=== PATIENT | male | born 1930 | race Caucasian/White ===

== ENCOUNTER 2019-07-22 15:59 | Inpatient (IN) ==
--- NOTE | 2019-07-22 16:32 | ERNOTE ---
Dyspnea - Date Date of Service: 07/22/19 - General Presenting Symptoms: shortness of breath, difficulty of breathing, wheezing Time Seen by Provider: 07/22/19 16:05 Source: patient, family, EMS Exam Limitations: no limitations - Immun/Allergies/Home Medications Allergies/Adverse Reactions: Allergies rosiglitazone [From Avandia] Allergy (Verified 07/22/19 16:39) Home Medications: HOME MEDICATIONS Arginine/Ascorbate Sod/Marielena AC [Arginaid Powder] 1 ea PO DAILY 07/22/19 [Last Taken Unknown] Atorvastatin Calcium 40 mg PO DAILY 07/22/19 [Last Taken Unknown] Cilostazol [Pletal] 100 mg PO DAILY 07/22/19 [Last Taken Unknown] Enalapril Maleate [Vasotec] 20 mg PO BID 07/22/19 [Last Taken Unknown] Ferrous Sulfate [Iron] 325 mg PO DAILY 07/22/19 [Last Taken Unknown] Gabapentin [Neurontin] 600 mg PO TID 07/22/19 [Last Taken Unknown] Multivit-Min/FA/Lycopen/Lutein [[facility] Multivitamin Tab] 1 ea PO DAILY 07/22/19 [Last Taken Unknown] Nut.tx.gluc Intol,Lf,Soy/Fiber [Glucerna] 240 ml PO BID 07/22/19 [Last Taken Unknown] [place]-3/Dha/Epa/Fish Oil [Fish Oil 1,000 mg Softgel] 1 ea PO DAILY 07/22/19 [Last Taken Unknown] Propylene Glycol/Peg 400/Pf [Systane 0.3-0.4% Eye Drops] 1 ea OPHTHALMIC (EYE) QID 07/22/19 [Last Taken Unknown] Psyllium Husk (with Sugar) [Metamucil] 1 ea PO DAILY 07/22/19 [Last Taken Unknown] Ranitidine HCl [Zantac] 150 mg PO BID 07/22/19 [Last Taken Unknown] Vitamin A 400 unit PO DAILY 07/22/19 [Last Taken Unknown] amLODIPine BESYLATE [Norvasc] 10 mg PO DAILY 07/22/19 [Last Taken Unknown] glipiZIDE [Glipizide] 10 mg PO BID 07/22/19 [Last Taken Unknown] - History of Present Illness Narrative: patient noted at [facility] to have low sats and sob Severity: moderate 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, 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 Initiating event: Reports: upper resp illness Frequency of episodes: Reports: occassional episodes Modifying Factors - (Improves): Reports: oxygen Modifying Factors (Worsens): Reports: activity Associated Symptoms-Dyspnea: Reports: fever/chills, cough, wheezing Review of Systems - Review of Systems Constitutional: Present: See HPI, weakness, fatigue, malaise EYE: Present: no symptoms reported ENT: Present: no symptoms reported Respiratory: Present: See HPI, cough, orthopnea, wheezing Cardiology: Present: no symptoms reported Gastrointestinal/Abdominal: Present: no symptoms reported Genitourinary: Present: no symptoms reported Musculoskeletal: Present: no symptoms reported Skin: Present: no symptoms reported Neurological: Present: no symptoms reported Endocrine: Present: no symptoms reported Hematologic/Lymphatic: Present: no symptoms reported Psych: Present: no symptoms reported Medical History (Updated 07/22/19 @ 16:36 by Kina Magallon RN) Chronic kidney disease, stage 3 (moderate) Hepatitis A Iron deficiency anemia Macular degeneration Mononeuropathy of both lower extremities Sick sinus syndrome Type 2 diabetes mellitus Vitamin D deficiency, unspecified Social History: (Last Updated 07/22/19 @ 16:37 by Kina Magallon RN) Social History: Marital status: / Tobacco: Smoking Status: Former smoker Alcohol: alcohol intake: never Substance Use: substance use type: does not use Physical Exam - Physical Exam General Appearance: Present: mild distress, anxious Head Exam: Present: normal inspection, no evidence of injury Eye Exam: Normal inspection: bilateral, PERRL: bilateral, EOMI: bilateral Ears, Nose, Throat: Present: normal ENT inspection, normal pharynx Neck: Present: normal inspection, nontender Respiratory: Present: no accessory muscle use, rales, rhonchi, wheezing Cardiovascular/Chest: Present: regular rate, rhythm, no murmur, normal peripheral pulses Peripheral Pulses: N=norm/S=strong/W=weak/B=bound/A=absent: Carotid (R): Normal, Carotid (L): Normal, Radial (R): Normal, Radial (L): Normal, Femoral (R): Normal, Femoral (L): Normal, Dorsalis-pedis (R): Normal, Dorsalis-pedis (L): Normal Gastrointestinal/Abdominal: Present: normal bowel sounds, nontender, nondistended, soft, no organomegaly Back Exam: Present: normal inspection, normal range of motion, no CVA tenderness, no vertebral tenderness Extremity Exam: Present: normal inspection Neurological Exam: Present: alert, oriented, normal mood/affect, no motor/sensory deficits Skin Exam: Present: normal color, warm/dry Lymphatic Exam: Present: no adenopathy Progress - Date and Time Seen: Date and Time: 07/22/19 17:42 condition unchanged, labs and x-rays reviewed with family and patient, they request palliative therapy and patient remains dnr, case discussed withdr gomez who accepts patient for admission - Results and Orders Patient's Lab Results:: I have reviewed the patient's lab results. - Vital Signs Patient's Vital Signs:: I have reviewed the patient's vital signs. Vital Signs: Vital Signs 07/22/19 16:00 Temperature 36.8 C Pulse Rate 77 Respiratory Rate 21 H Blood Pressure 123/40 O2 Sat by Pulse Oximetry 98 - EKG EKG #1 EKG: atrial fibrillation - X-Ray X-Ray #1 X-Ray: chest - chf, left pleural effussion Interpretation: Interp. by me - Progress/Reassessment Chief Complaint: Dyspnea Progress:: Unchanged Plan - Plan Plan: to admit to [facility] Clinical Impression: CHF (congestive heart failure) - Departure Disposition: Still a patient Condition: Serious Instructions: Heart Failure, [id number] Referrals: Crystal Rosario APRN [Primary Care Provider] -
[2019-07-22 16:37] LABS: Mean Cell Volume 93.1 fl (78-100); Mean Corpuscular Hgb Conc 31.1 g/dl (32-36); Mean Platelet Volume 10.3 fl (8-11.3); Platelet Count 228 K/mm3 (150-450); Red Blood Count 2.45 M/mm3 (4.7-6.0); Red Cell Distribution Width 15.6 % (11.5-14.0); White Blood Count 10.8 K/mm3 (4.0-10.5)
[2019-07-22 16:47] LABS: Hemoglobin 7.1 gm/dL (13.5-18.0)
[2019-07-22 16:48] LABS: Hematocrit 22.8 % (42.0-52.0)
[2019-07-22 16:49] LABS: Total Cells Counted 100
[2019-07-22 16:59] LABS: Albumin * 2.6 gm/dl (3.4-5.0); Anion Gap 12.9 mmol/L (6.8-13.8); Bilirubin, Total 0.4 mg/dL (0.0-1.1); CRP 7.5 mg/dL (0.0-0.9); Ca. Corrected For Albumin 8.6 mg/dL (8.4-10.2); Calcium * 7.8 mg/dL (7.9-10.9); Carbon Dioxide 25.5 mmol/L (24-32.6); Potassium 4.4 mmol/L (3.4-4.6); Total Protein 6.2 gm/dL (6.2-8.2)
[2019-07-22 17:00] LABS: Troponin I 0.122 ng/mL (0.00-0.10)
[2019-07-22 17:06] LABS: Lymphocyte 9 % (20-51); Monocyte 11 % (0-9); Neutrophil 80 % (42-75); Neutrophil # 8.6 K/mm3 (1.3-6.0); Platelet Estimate Normal (NORMAL); RBC Morphology Normal (NORMAL)
[2019-07-22] MEDS ORDERED: FUROSEMIDE 10 MG/ML VIAL IV ONE ×2 (17:14→18:49)
[2019-07-22] MEDS ORDERED: NORMAL SALINE 1,000 ML IV PRN (17:46)
--- NOTE | 2019-07-22 18:45 | HP ---
Chief Complaint - Chief Complaint Date of Service: 07/22/19 Time of Service: 18:52 Chief Complaint: Nonproductive cough x1 week, weakness and shortness of breath History of Present Illness: 88-year-old male who past medical history of CKD stage III, AFib, iron deficiency anemia, type 2 diabetes, sick sinus syndrome, macular degeneration, mononeuropathy of both lower extremities presents with complaints of a nonproductive cough for the past 1 week. Associated with burning abdominal pain. He states his abdominal pain that radiated into his chest but was relieved with Zantac at the custodial. Today he also reports shortness of breath. Denies fevers or chills. He is currently living at [facility] and has been there for the past 1 month for rehab. Prior to that he was living at home with his daughter. Stool or blood in stool he denies any black. Denies coughing up blood. Daughter states his last hemoglobin was 8.2 about 2 months ago at [place]. 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 He has a smoking history. He had been diagnosed with atrial fibrillation but declined any anticoagulation. He is not on diuretics at home. I discussed with the patient regarding CODE STATUS and he wants to be DNR/DNI. In the emergency department he is found to be anemic with a hemoglobin of 7.1, hematocrit 22.8. His renal function appears to be stable. The chest x- ray shows large left pleural effusion and pulmonary vascular congestion. Daughter states baseline creatinine is 3. Creatinine today is 2.1 with GFR of 32, elevated troponin of 0.12. I will admit him for fluid overload and anemia. He will is agreeable to this is receiving 1 unit of blood and IV diuresis. Medical History (Updated 07/22/19 @ 18:45 by Rosalinda Mills MD) Chronic kidney disease, stage 3 (moderate) Hepatitis A Iron deficiency anemia Macular degeneration Mononeuropathy of both lower extremities Sick sinus syndrome Type 2 diabetes mellitus Vitamin D deficiency, unspecified Social History: (Last Updated 07/22/19 @ 16:37 by Kina Magallon RN) Social History: Marital status: / Tobacco: Smoking Status: Former smoker Alcohol: alcohol intake: never Substance Use: substance use type: does not use Review Of Systems (GEN) - Review of Systems Generalized/Overall Review: Present: Weakness. Absent: Fever Respiratory: Present: Cough, Shortness of Breath Cardiac: Absent: Chest Pain Abdominal: Present: Abdominal Pain. Absent: Nausea, Vomiting, Melena, Bright blood from rectum Misc: All systems neg except as marked Allergies/Adverse Reactions: Allergies Allergy/AdvReac Type Severity Reaction Status Date / Time rosiglitazone [From Avandia] Allergy Verified 07/22/19 16:39 Home Medications: HOME MEDICATIONS Acetaminophen [Tylenol] 650 mg PO Q6H PRN 07/22/19 [Last Taken Unknown] Albuterol Sulfate/Ipratropium [Duoneb 2.5-0.5MG/3ML Soln] 3 ml INHALATION .Q4HR PRN 07/22/19 [Last Taken Unknown] Arginine/Ascorbate Sod/Marielena AC [Arginaid Powder] 1 ea PO DAILY 07/22/19 [Last Taken Unknown] Atorvastatin Calcium 40 mg PO DAILY 07/22/19 [Last Taken Unknown] Cilostazol [Pletal] 100 mg PO DAILY 07/22/19 [Last Taken Unknown] Enalapril Maleate [Vasotec] 20 mg PO BID 07/22/19 [Last Taken Unknown] Ferrous Sulfate [Iron] 325 mg PO DAILY 07/22/19 [Last Taken Unknown] Gabapentin [Neurontin] 600 mg PO TID 07/22/19 [Last Taken Unknown] Loratadine 10 mg PO PRN PRN 07/22/19 [Last Taken Unknown] Multivit-Min/FA/Lycopen/Lutein [[facility] Multivitamin Tab] 1 ea PO DAILY 07/22/19 [Last Taken Unknown] Nut.tx.gluc Intol,Lf,Soy/Fiber [Glucerna] 240 ml PO BID 07/22/19 [Last Taken Unknown] [place]-3/Dha/Epa/Fish Oil [Fish Oil 1,000 mg Softgel] 1 ea PO DAILY 07/22/19 [Last Taken Unknown] Propylene Glycol/Peg 400/Pf [Systane 0.3-0.4% Eye Drops] 1 ea OPHTHALMIC (EYE) QID 07/22/19 [Last Taken Unknown] Pseudoephedrine HCl [Sudogest] 30 mg PO .Q4HR PRN 07/22/19 [Last Taken Unknown] Psyllium Husk (with Sugar) [Metamucil] 1 ea PO DAILY 07/22/19 [Last Taken Unknown] Ranitidine HCl [Zantac] 150 mg PO BID 07/22/19 [Last Taken Unknown] Vitamin A 400 unit PO DAILY 07/22/19 [Last Taken Unknown] amLODIPine BESYLATE [Norvasc] 10 mg PO DAILY 07/22/19 [Last Taken Unknown] glipiZIDE [Glipizide] 10 mg PO BID 07/22/19 [Last Taken Unknown] guaiFENesin [Mucinex] 600 mg PO .Q12HR PRN 07/22/19 [Last Taken Unknown] guaiFENesin/DEXTROMETHORPHAN [Tussin Dm Syrup] 10 ml PO .Q4HR PRN 07/22/19 [Last Taken Unknown] Exam - Exam Vital Signs: Vital Signs - Last Taken Temp 36.8 C 07/22/19 16:00 Pulse 58 L 07/22/19 17:47 Resp 22 H 07/22/19 17:47 BP 114/42 07/22/19 17:47 Pulse Ox 91 L 07/22/19 17:47 Constitutional: Present: Alert, Cooperative, Well developed, Well nourished, Elderly ENT Exam: Present: hearing grossly normal, moist mucous membranes Eye Exam: bilateral eye: normal inspection, PERRL, EOMI Neck: Present: non-tender, supple. Absent: lymphadenopathy (R), lymphadenopathy (L) Back Exam: Present: normal inspection, no CVA tenderness, no vertebral tenderness. Absent: CVA tenderness (R), CVA tenderness (L) Respiratory: Present: no respiratory distress, no accessory muscle use, decreased breath sounds - Coarse breath sounds noted throughout all lung jaramillo Cardiovascular/Chest: Present: normal peripheral pulses, regular rate, rhythm, no edema, no murmur Peripheral Pulses: dorsalis-pedis (R): 1+, dorsalis-pedis (L): 1+ Abdomen: Present: Normal bowel sounds, soft, nontender Extremity: Present: no pedal edema Skin Exam: Present: normal color, warm/dry Neurologic: Present: alert, normal mood/affect Appearance: Present: appropriate appearance, appropriate insight Eye contact: Present: cooperative, good eye contact Thoughts: Present: normal thought pattern, normal mood /affect Diagnostic Studies: Abnormal Lab Results 07/22/19 07/22/19 07/22/19 Range/Units 16:18 16:34 16:34 WBC 10.8 H (4.0-10.5) K/mm3 RBC 2.45 L (4.7-6.0) M/mm3 Hgb 7.1 L* (13.5-18.0) gm/dL Hct 22.8 L* (42.0-52.0) % MCHC 31.1 L (32-36) g/dl RDW 15.6 H (11.5-14.0) % Neutrophils % (Manual) 80 H (42-75) % Lymphocytes % (Manual) 9 L (20-51) % Monocytes % (Manual) 11 H (0-9) % Neutrophils # (Manual) 8.6 H (1.3-6.0) K/mm3 Lymphocytes # (Manual) 1.0 L (1.5-3.5) k/mm3 Monocytes # (Manual) 1.2 H (0.0-1.0) k/mm3 D-Dimer (0.19-0.49) ug/mL pCO2 (35.0-48.0) mmHg pO2 (83.0-108.0) mmHg HCO3 (21.0-28.0) mmol/L Base Excess (-2.0-3.0) mmol/L ABG O2 Sat (Measured) (94.0-98.0) % Plasma Sodium 143 H (130-142) mmol/L Chloride 107 H (97-106) mmol/L BUN 42 H (6-23) mg/dL Creatinine 2.10 H (0.4-1.4) mg/dL Est GFR (Non-Af Amer) 32 L (60-130) mL/min Random Glucose 255 H (70-110) mg/dL Lactic Acid, Venous 2.1 H (0.4-2.0) mmol/L Calcium 7.8 L (7.9-10.9) mg/dL ALT 12 L (19-67) U/L Troponin I 0.122 H* (0.00-0.10) ng/mL C-Reactive Prot, Quant 7.5 H (0.0-0.9) mg/dL B-Natriuretic Peptide 4331 H (5-650) pg/mL Albumin 2.6 L (3.4-5.0) gm/dl 07/22/19 07/22/19 Range/Units 16:34 17:18 WBC (4.0-10.5) K/mm3 RBC (4.7-6.0) M/mm3 Hgb (13.5-18.0) gm/dL Hct (42.0-52.0) % MCHC (32-36) g/dl RDW (11.5-14.0) % Neutrophils % (Manual) (42-75) % Lymphocytes % (Manual) (20-51) % Monocytes % (Manual) (0-9) % Neutrophils # (Manual) (1.3-6.0) K/mm3 Lymphocytes # (Manual) (1.5-3.5) k/mm3 Monocytes # (Manual) (0.0-1.0) k/mm3 D-Dimer 2.32 H (0.19-0.49) ug/mL pCO2 33.8 L (35.0-48.0) mmHg pO2 38.2 L* (83.0-108.0) mmHg HCO3 20.2 L (21.0-28.0) mmol/L Base Excess -4.2 L (-2.0-3.0) mmol/L ABG O2 Sat (Measured) 72.8 L (94.0-98.0) % Plasma Sodium (130-142) mmol/L Chloride (97-106) mmol/L BUN (6-23) mg/dL Creatinine (0.4-1.4) mg/dL Est GFR (Non-Af Amer) (60-130) mL/min Random Glucose (70-110) mg/dL Lactic Acid, Venous (0.4-2.0) mmol/L Calcium (7.9-10.9) mg/dL ALT (19-67) U/L Troponin I (0.00-0.10) ng/mL C-Reactive Prot, Quant (0.0-0.9) mg/dL B-Natriuretic Peptide (5-650) pg/mL Albumin (3.4-5.0) gm/dl Laboratory Results WBC 10.8 K/mm3 (4.0-10.5) H 07/22/19 16:34 RBC 2.45 M/mm3 (4.7-6.0) L 07/22/19 16:34 Hgb 7.1 gm/dL (13.5-18.0) L* 07/22/19 16:34 Hct 22.8 % (42.0-52.0) L* 07/22/19 16:34 MCV 93.1 fl (78-100) 07/22/19 16:34 MCH 29.0 pg (27-31) 07/22/19 16:34 MCHC 31.1 g/dl (32-36) L 07/22/19 16:34 RDW 15.6 % (11.5-14.0) H 07/22/19 16:34 Plt Count 228 K/mm3 (150-450) 07/22/19 16:34 MPV 10.3 fl (8-11.3) 07/22/19 16:34 80 % (42-75) H 07/22/19 16:34 9 % (20-51) L 07/22/19 16:34 11 % (0-9) H 07/22/19 16:34 8.6 K/mm3 (1.3-6.0) H 07/22/19 16:34 1.0 k/mm3 (1.5-3.5) L 07/22/19 16:34 1.2 k/mm3 (0.0-1.0) H 07/22/19 16:34 Normal (NORMAL) 07/22/19 16:34 RBC Morphology Normal (NORMAL) 07/22/19 16:34 2.32 ug/mL (0.19-0.49) H 07/22/19 16:34 pCO2 33.8 mmHg (35.0-48.0) L 07/22/19 17:18 pO2 38.2 mmHg (83.0-108.0) L* 07/22/19 17:18 HCO3 20.2 mmol/L (21.0-28.0) L 07/22/19 17:18 Total CO2 21.2 mmol/L (19.0-24.0) 07/22/19 17:18 Base Excess -4.2 mmol/L (-2.0-3.0) L 07/22/19 17:18 ABG pH 7.39 (7.35-7.45) 07/22/19 17:18 ABG O2 Sat (Measured) 72.8 % (94.0-98.0) L 07/22/19 17:18 Sodium 141 mmol/L (132-142) 07/22/19 16:34 143 mmol/L (130-142) H 07/22/19 16:34 Potassium 4.4 mmol/L (3.4-4.6) 07/22/19 16:34 Chloride 107 mmol/L (97-106) H 07/22/19 16:34 Carbon Dioxide 25.5 mmol/L (24-32.6) 07/22/19 16:34 12.9 mmol/L (6.8-13.8) 07/22/19 16:34 BUN 42 mg/dL (6-23) H 07/22/19 16:34 2.10 mg/dL (0.4-1.4) H 07/22/19 16:34 Est GFR (Non-Af Amer) 32 mL/min (60-130) L 07/22/19 16:34 20.0 (9.0-21.6) 07/22/19 16:34 255 mg/dL (70-110) H 07/22/19 16:34 2.1 mmol/L (0.4-2.0) H 07/22/19 16:18 Calcium 7.8 mg/dL (7.9-10.9) L 07/22/19 16:34 Calcium Adj for Albumin 8.6 mg/dL (8.4-10.2) 07/22/19 16:34 0.4 mg/dL (0.0-1.1) 07/22/19 16:34 AST 16 U/L (0-48) 07/22/19 16:34 ALT 12 U/L (19-67) L 07/22/19 16:34 112 U/L (50-170) 07/22/19 16:34 0.122 ng/mL (0.00-0.10) H* 07/22/19 16:34 C-Reactive Prot, Quant 7.5 mg/dL (0.0-0.9) H 07/22/19 16:34 B-Natriuretic Peptide 4331 pg/mL (5-650) H 07/22/19 16:34 6.2 gm/dL (6.2-8.2) 07/22/19 16:34 2.6 gm/dl (3.4-5.0) L 07/22/19 16:34 Assessment/Plan - Narrative Narrative: 88-year-old male who past medical history of CKD stage III, iron deficiency anemia, Afib, type 2 diabetes, sick sinus syndrome, macular degeneration, mononeuropathy of both lower extremities presents with complaints of a nonproductive cough for the past 1 week. I discussed with the patient regarding CODE STATUS and he wants to be DNR/DNI. In the emergency department he is found to be anemic with a hemoglobin of 7.1, hematocrit 22.8. His renal function appears to be stable. The chest x-ray shows large left pleural effusion and pulmonary vascular congestion. Daughter states baseline creatinine is 3. Creatinine today is 2.1 with GFR of 32, elevated troponin of 0.12. I will admit him for fluid overload and anemia. He will is agreeable to this is receiving 1 unit of blood and IV diuresis. Family states they don't want any aggressive management such as a thoracentesis. They want to transition him to palliative care and their goal is to keep him comfortable. Plan #1 start Lasix 40 mg twice a day. Strict I's and O's. #2 type and screen, give 1 unit of blood with 1 dose of Lasix 40 mg after transfusion. 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
[2019-07-22] MEDS ORDERED: ACETAMINOPHEN 325 MG TABLET PO PRN (18:46)
[2019-07-22] MEDS: BENZONATATE 100 MG CAPSULE PO PRN (20:57)
[2019-07-22] MEDS: FAMOTIDINE 20 MG TABLET PO SCH (20:58)
[2019-07-22] MEDS: ENALAPRIL MALEATE 20 MG TABLET PO SCH (20:58)
[2019-07-22] MEDS: glipiZIDE 10 MG TABLET PO SCH (20:58)
[2019-07-22] MEDS: FUROSEMIDE 10 MG/ML VIAL IV SCH (23:41)
[2019-07-23] MEDS: BENZONATATE 100 MG CAPSULE PO PRN ×3 (05:34→21:24)
[2019-07-23 05:40] LABS: Hemoglobin 9.3 gm/dL (13.5-18.0)
[2019-07-23 05:57] LABS: Hematocrit 28.9 % (42.0-52.0); Mean Cell Volume 90.6 fl (78-100); Mean Corpuscular Hemoglobin 29.2 pg (27-31); Mean Corpuscular Hgb Conc 32.2 g/dl (32-36); Mean Platelet Volume 10.6 fl (8-11.3); Neutrophil # 7.8 K/mm3 (1.3-6.0); Neutrophil % 68.6 % (42-75.0); Platelet Count 248 K/mm3 (150-450); Red Blood Count 3.19 M/mm3 (4.7-6.0); Red Cell Distribution Width 15.4 % (11.5-14.0); White Blood Count 11.4 K/mm3 (4.0-10.5)
[2019-07-23 06:04] LABS: Albumin * 2.7 gm/dl (3.4-5.0); Anion Gap 13.7 mmol/L (6.8-13.8); BUN/Creatinine Ratio 21.6 (9.0-21.6); Bilirubin, Total 0.6 mg/dL (0.0-1.1); Calcium * 8.3 mg/dL (7.9-10.9); Potassium 3.7 mmol/L (3.4-4.6); Total Protein 6.6 gm/dL (6.2-8.2)
[2019-07-23] MEDS: PSYLLIUM SEED 1 PACKET PACKET PO SCH (08:17)
[2019-07-23] MEDS: glipiZIDE 10 MG TABLET PO SCH ×2 (08:17→16:45)
[2019-07-23] MEDS: FUROSEMIDE 10 MG/ML VIAL IV SCH (08:17)
[2019-07-23] MEDS: FERROUS SULFATE 325 MG TABLET PO SCH (08:17)
[2019-07-23] MEDS: FAMOTIDINE 20 MG TABLET PO SCH ×2 (08:18→21:24)
[2019-07-23] MEDS: amLODIPine BESYLATE 10 MG TABLET PO SCH (08:18)
[2019-07-23] MEDS: CILOSTAZOL 100 MG TABLET PO SCH (08:18)
[2019-07-23] MEDS: GABAPENTIN 600 MG TABLET PO SCH ×3 (08:18→16:45)
[2019-07-23] MEDS: ENALAPRIL MALEATE 20 MG TABLET PO SCH ×2 (08:18→21:24)
[2019-07-23] MEDS ORDERED: ROSUVASTATIN CALCIUM 20 MG TABLET PO SCH (09:00)
[2019-07-23] MEDS ORDERED: POTASSIUM BICARBONATE/CIT AC 25 MEQ TABLET.EFF PO ONE (10:16)
--- NOTE | 2019-07-23 10:16 | PN ---
Subjective - Date and Time Seen Date: 07/23/19 Time: 08:50 Subjective Narrative: He states he feels better today, decreased shortness of breath and decreased cough. Objective - Review of Systems Generalized/Overall Review: Reports: Weakness. Denies: Chills, Fever Respiratory: Reports: Shortness of Breath Cardiac: Denies: Chest Pain Abdominal: Denies: Abdominal Pain Misc: All systems neg except as marked - Vitals Vitals: Last Vital Signs Temp 36.7 C 07/23/19 07:07 Pulse 79 07/23/19 08:18 Resp 16 07/23/19 07:07 BP 134/51 07/23/19 08:18 Pulse Ox 98 07/23/19 09:31 - Abnormal Lab Findings Abnormal Lab Findings: Abnormal Lab Results 07/22/19 07/22/19 07/22/19 Range/Units 16:18 16:34 16:34 WBC 10.8 H (4.0-10.5) K/mm3 RBC 2.45 L (4.7-6.0) M/mm3 Hgb 7.1 L* (13.5-18.0) gm/dL Hct 22.8 L* (42.0-52.0) % MCHC 31.1 L (32-36) g/dl RDW 15.6 H (11.5-14.0) % Neutrophils % (Manual) 80 H (42-75) % Lymphocytes % (20-51) % Lymphocytes % (Manual) 9 L (20-51) % Monocytes % (0.0-9) % Monocytes % (Manual) 11 H (0-9) % Eosinophils % (0.0-3.0) % Neutrophils # (1.3-6.0) K/mm3 Neutrophils # (Manual) 8.6 H (1.3-6.0) K/mm3 Lymphocytes # (Manual) 1.0 L (1.5-3.5) k/mm3 Monocytes # (0.0-1.0) k/mm3 Monocytes # (Manual) 1.2 H (0.0-1.0) k/mm3 D-Dimer (0.19-0.49) ug/mL pCO2 (35.0-48.0) mmHg pO2 (83.0-108.0) mmHg HCO3 (21.0-28.0) mmol/L Base Excess (-2.0-3.0) mmol/L ABG O2 Sat (Measured) (94.0-98.0) % Sodium (132-142) mmol/L Plasma Sodium 143 H (130-142) mmol/L Chloride 107 H (97-106) mmol/L BUN 42 H (6-23) mg/dL Creatinine 2.10 H (0.4-1.4) mg/dL Est GFR (Non-Af Amer) 32 L (60-130) mL/min Random Glucose 255 H (70-110) mg/dL Lactic Acid, Venous 2.1 H (0.4-2.0) mmol/L Calcium 7.8 L (7.9-10.9) mg/dL ALT 12 L (19-67) U/L Troponin I 0.122 H* (0.00-0.10) ng/mL C-Reactive Prot, Quant 7.5 H (0.0-0.9) mg/dL B-Natriuretic Peptide 4331 H (5-650) pg/mL Albumin 2.6 L (3.4-5.0) gm/dl Crossmatch 07/22/19 07/22/19 07/22/19 Range/Units 16:34 16:55 17:18 WBC (4.0-10.5) K/mm3 RBC (4.7-6.0) M/mm3 Hgb (13.5-18.0) gm/dL Hct (42.0-52.0) % MCHC (32-36) g/dl RDW (11.5-14.0) % Neutrophils % (Manual) (42-75) % Lymphocytes % (20-51) % Lymphocytes % (Manual) (20-51) % Monocytes % (0.0-9) % Monocytes % (Manual) (0-9) % Eosinophils % (0.0-3.0) % Neutrophils # (1.3-6.0) K/mm3 Neutrophils # (Manual) (1.3-6.0) K/mm3 Lymphocytes # (Manual) (1.5-3.5) k/mm3 Monocytes # (0.0-1.0) k/mm3 Monocytes # (Manual) (0.0-1.0) k/mm3 D-Dimer 2.32 H (0.19-0.49) ug/mL pCO2 33.8 L (35.0-48.0) mmHg pO2 38.2 L* (83.0-108.0) mmHg HCO3 20.2 L (21.0-28.0) mmol/L Base Excess -4.2 L (-2.0-3.0) mmol/L ABG O2 Sat (Measured) 72.8 L (94.0-98.0) % Sodium (132-142) mmol/L Plasma Sodium (130-142) mmol/L Chloride (97-106) mmol/L BUN (6-23) mg/dL Creatinine (0.4-1.4) mg/dL Est GFR (Non-Af Amer) (60-130) mL/min Random Glucose (70-110) mg/dL Lactic Acid, Venous (0.4-2.0) mmol/L Calcium (7.9-10.9) mg/dL ALT (19-67) U/L Troponin I (0.00-0.10) ng/mL C-Reactive Prot, Quant (0.0-0.9) mg/dL B-Natriuretic Peptide (5-650) pg/mL Albumin (3.4-5.0) gm/dl Crossmatch See Detail 07/23/19 07/23/19 Range/Units 05:20 05:20 WBC 11.4 H (4.0-10.5) K/mm3 RBC 3.19 L (4.7-6.0) M/mm3 Hgb 9.3 L (13.5-18.0) gm/dL Hct 28.9 L (42.0-52.0) % MCHC (32-36) g/dl RDW 15.4 H (11.5-14.0) % Neutrophils % (Manual) (42-75) % Lymphocytes % 13.5 L (20-51) % Lymphocytes % (Manual) (20-51) % Monocytes % 13.3 H (0.0-9) % Monocytes % (Manual) (0-9) % Eosinophils % 3.9 H (0.0-3.0) % Neutrophils # 7.8 H (1.3-6.0) K/mm3 Neutrophils # (Manual) (1.3-6.0) K/mm3 Lymphocytes # (Manual) (1.5-3.5) k/mm3 Monocytes # 1.5 H (0.0-1.0) k/mm3 Monocytes # (Manual) (0.0-1.0) k/mm3 D-Dimer (0.19-0.49) ug/mL pCO2 (35.0-48.0) mmHg pO2 (83.0-108.0) mmHg HCO3 (21.0-28.0) mmol/L Base Excess (-2.0-3.0) mmol/L ABG O2 Sat (Measured) (94.0-98.0) % Sodium 145 H (132-142) mmol/L Plasma Sodium 145 H (130-142) mmol/L Chloride 109 H (97-106) mmol/L BUN 43 H (6-23) mg/dL Creatinine 1.99 H (0.4-1.4) mg/dL Est GFR (Non-Af Amer) 34 L (60-130) mL/min Random Glucose (70-110) mg/dL Lactic Acid, Venous (0.4-2.0) mmol/L Calcium (7.9-10.9) mg/dL ALT 9 L (19-67) U/L Troponin I (0.00-0.10) ng/mL C-Reactive Prot, Quant (0.0-0.9) mg/dL B-Natriuretic Peptide (5-650) pg/mL Albumin 2.7 L (3.4-5.0) gm/dl Crossmatch - Exam Constitutional: Present: Alert, Cooperative, Well developed, Well nourished, Elderly ENT Exam: Present: hearing grossly normal Neck: Present: non-tender, supple. Absent: lymphadenopathy (R), lymphadenopathy (L) Respiratory: Present: no respiratory distress, no accessory muscle use, decre ased breath sounds - Left lower lung field, crackles - Mild in lung bases, No wheezing. Absent: rhonchi Cardiovascular/Chest: Present: normal peripheral pulses, no edema, no murmur, irregularly irregular Abdomen: Present: Normal bowel sounds, soft, nontender, nondistended Extremity: Present: non-tender, no pedal edema Skin Exam: Present: normal color, warm/dry Neurologic: Present: normal mood/affect Appearance: Present: appropriate appearance, appropriate insight, impaired insight Eye contact: Present: cooperative Thoughts: Present: normal mood /affect Assessment/Plan Plan Narrative: 88-year-old male who past medical history of CKD stage III, iron deficiency anemia, Afib, type 2 diabetes, sick sinus syndrome, macular degeneration, monone uropathy of both lower extremities presents with complaints of a nonproductive cough for the past 1 week. I discussed with the patient regarding CODE STATUS and he wants to be DNR/DNI. In the emergency department he is found to be anemic with a hemoglobin of 7.1, hematocrit 22.8. His renal function appears to be stable. The chest x-ray shows large left pleural effusion and pulmonary vascular congestion. Daughter states baseline creatinine is 3. Creatinine today is 2.1 with GFR of 32, elevated troponin of 0.12. I will admit him for fluid overload and anemia. Family states they don't want any aggressive management such as a thoracentesis or echocardiogram. They want to transition him to palliative care and their goal is to keep him comfortable. He received 1 unit of blood overnight. Hemoglobin improved from 7.1-9.3. Sodium has increased to 145 with a diuresis. I will give him some potassium as well because it has dropped to 3.7. Kidney function is stable. He had 2200 cc of urine output overnight. I will have physical therapy assess him today due to his weakness and see if he will be stable to be discharged home with his daughter. He does not want to return to the half-way Plan #1 His sodium has risen to 145. Potassium is also dropped to 3.7. I will decrease the Lasix to 40 mg once a day. S continue with trict I's and O's. Encourage oral intake. I would like to avoid starting him on D5 water but if the sodium does not improve I will start him on 50 cc. #2 Monitor CBC and CMP in the morning #3 duo nebs every 4 to 6 hours as needed shortness of breath. Goal oxygen saturation is greater than 92%. Wean off of supplemental oxygen as tolerated. #4 Continue with home medications for comorbidities #5 transition to inpatient status #6 VTE prophylaxis with SCDs due to the potential that he is having some type of internal bleed - Problems/Diagnosis (1) Large pleural effusion Problem: Acute (2) Acute on chronic anemia Problem: Acute (3) CHF (congestive heart failure) Problem: Acute Qualifiers: Heart failure type: unspecified Heart failure chronicity: unspecified Qualified Code(s): I50.9 - Heart failure, unspecified (4) CKD (chronic kidney disease) stage 3, GFR 30-59 ml/min Problem: Chronic (5) Diabetes mellitus Problem: Chronic Qualifiers: Diabetes mellitus type: type 2 Diabetes mellitus terminal supervisor insulin use: without correction use Chronic kidney disease stage: stage 3 (moderate) (6) Elevated troponin Problem: Acute (7) Acute hypernatremia Problem: Acute
[2019-07-23] MEDS: ROSUVASTATIN CALCIUM 20 MG TABLET PO SCH (21:24)
[2019-07-24] MEDS: BENZONATATE 100 MG CAPSULE PO PRN ×2 (05:47→14:46)
[2019-07-24] MEDS: glipiZIDE 10 MG TABLET PO SCH ×2 (07:59→16:10)
[2019-07-24] MEDS: FERROUS SULFATE 325 MG TABLET PO SCH (07:59)
[2019-07-24] MEDS: PSYLLIUM SEED 1 PACKET PACKET PO SCH (08:00)
[2019-07-24] MEDS: FUROSEMIDE 10 MG/ML VIAL IV SCH (08:00)
[2019-07-24] MEDS: FAMOTIDINE 20 MG TABLET PO SCH ×2 (08:00→20:55)
[2019-07-24] MEDS: ENALAPRIL MALEATE 20 MG TABLET PO SCH ×2 (08:00→20:56)
[2019-07-24] MEDS: amLODIPine BESYLATE 10 MG TABLET PO SCH (08:00)
[2019-07-24] MEDS: CILOSTAZOL 100 MG TABLET PO SCH (08:00)
[2019-07-24] MEDS: GABAPENTIN 600 MG TABLET PO SCH ×3 (08:00→16:11)
[2019-07-24 08:43] LABS: Hemoglobin 10.1 gm/dL (13.5-18.0); Mean Corpuscular Hgb Conc 31.6 g/dl (32-36); Mean Platelet Volume 9.6 fl (8-11.3); Neutrophil # 7.7 K/mm3 (1.3-6.0); Neutrophil % 73.4 % (42-75.0); Platelet Count 267 K/mm3 (150-450); Red Blood Count 3.48 M/mm3 (4.7-6.0); Red Cell Distribution Width 15.2 % (11.5-14.0); White Blood Count 10.5 K/mm3 (4.0-10.5)
[2019-07-24 09:08] LABS: Albumin * 2.8 gm/dl (3.4-5.0); Anion Gap 12.3 mmol/L (6.8-13.8); BUN/Creatinine Ratio 19.2 (9.0-21.6); Bilirubin, Total 0.8 mg/dL (0.0-1.1); Ca. Corrected For Albumin 8.7 mg/dL (8.4-10.2); Calcium * 8.1 mg/dL (7.9-10.9); Carbon Dioxide 29.6 mmol/L (24-32.6); Potassium 3.9 mmol/L (3.4-4.6); Total Protein 7.2 gm/dL (6.2-8.2)
[2019-07-24] MEDS ORDERED: LORATADINE 10 MG TABLET PO PRN (09:49)
[2019-07-24] MEDS ORDERED: ALBUTEROL SULFATE/IPRATROPIUM 3 ML NEBU IH PRN (09:49)
--- NOTE | 2019-07-24 10:20 | PN ---
Subjective - Date and Time Seen Date: 07/24/19 Time: 10:05 Subjective Narrative: I feel much better than yesterday Objective Objective Narrative: 88-year-old male admitted for decompensated CHF, large left pleural effusion, generalized weakness, and anemia was evaluated at bedside and was found to be afebrile and in no acute distress. Patient has been treated with multiple doses of IV diuretics and he has been transfused 1 unit of PRBCs since arriving to our institution. This morning he shows significant clinical improvement and reports feeling much better. Patient denies any shortness of breath and was able to tolerate physical therapy session this morning without any issues, he ambulated a considerable distance without any falling or shortness of breath. Repeat chest x-ray demonstrate improvement of his pleural effusion, therefore we will continue to monitor him before deciding on a thoracentesis. Patient's labs this morning demonstrate stabilization of his hemoglobin at 10, therefore we will continue to monitor him with labs. His BNP has also improved after treating patient with multiple doses of IV diuretics. Patient is also maintaining stable vital at the moment. - Review of Systems Generalized/Overall Review: Reports: Weakness EENTM: Reports: No Symptoms Reported Respiratory: Reports: No Symptoms Reported Cardiac: Reports: No Symptoms Reported Abdominal: Reports: No Symptoms Reported Genitourinary Symptoms: Reports: No Symptoms Reported Musculoskeletal Complaints: Reports: No Symptoms Reported Neurological: Reports: No Symptoms Reported Skin: Reports: No Symptoms Reported Endocrine: Reports: No Symptoms Reported - Vitals Vitals: Last Vital Signs Temp 36.9 C 07/24/19 07:41 Pulse 76 07/24/19 09:46 Resp 20 07/24/19 07:41 BP 129/47 07/24/19 08:00 Pulse Ox 94 07/24/19 08:21 - Abnormal Lab Findings Abnormal Lab Findings: Abnormal Lab Results 07/24/19 07/24/19 Range/Units 08:37 08:37 RBC 3.48 L (4.7-6.0) M/mm3 Hgb 10.1 L (13.5-18.0) gm/dL Hct 32.0 L (42.0-52.0) % MCHC 31.6 L (32-36) g/dl RDW 15.2 H (11.5-14.0) % Lymphocytes % 11.4 L (20-51) % Monocytes % 10.1 H (0.0-9) % Eosinophils % 4.3 H (0.0-3.0) % Neutrophils # 7.7 H (1.3-6.0) K/mm3 Lymphocytes # 1.20 L (1.5-3.5) k/mm3 Monocytes # 1.1 H (0.0-1.0) k/mm3 Plasma Sodium 144 H (130-142) mmol/L BUN 41 H (6-23) mg/dL Creatinine 2.13 H (0.4-1.4) mg/dL Est GFR (Non-Af Amer) 31 L (60-130) mL/min Random Glucose 194 H D (70-110) mg/dL ALT 13 L (19-67) U/L B-Natriuretic Peptide 3601 H (5-650) pg/mL Albumin 2.8 L (3.4-5.0) gm/dl - Exam Constitutional: Present: Alert, Oriented x3, Cooperative, Well developed, Well nourished, No distress, Elderly ENT Exam: Present: normal ENT inspection, hearing grossly normal, pharynx normal, TMs normal Neck: Present: non-tender, full range of motion, supple, normal inspection, trachea midline Breasts: Present: Exam deferred Respiratory: Present: chest non-tender, no respiratory distress, no accessory muscle use, decreased breath sounds - Decreased breath sounds on the left lung base Cardiovascular/Chest: Present: no chest tenderness, no edema, no gallop, no JVD, no murmur, no rub, irregularly irregular Abdomen: Present: Normal bowel sounds, soft, nontender, nondistended, no rebound tenderness, no hepatospenomegaly, no masses /Rectal: Present: Exam deferred Extremity: Present: normal range of motion, non-tender, normal inspection, no pedal edema, no calf tenderness, normal capillary refill Skin Exam: Present: normal color, warm/dry, no cyanosis Lymphatic: Present: no adenopathy Neurologic: Present: vocal music instructor II-XII nml as tested, normal cerebellar test, no dima r/sensory deficits, alert, normal mood/affect, oriented x 3 Appearance: Present: appropriate appearance, appropriate insight, neat, no memory impairment Eye contact: Present: cooperative, good eye contact, normal speech Thoughts: Present: normal thought pattern, no apparent hallucination Assessment/Plan Plan Narrative: We will continue to treat patient with IV diuretics for optimal diuresis and continue monitoring hemoglobin levels with subsequent labs. At the moment patient has adequate oxygen saturation and denies any shortness of breath and after seeing his chest x-ray will continue to monitor and decide at a later time whether or not thoracentesis will be necessary. Patient was found to have elevated troponin level on admission, however it is documented that the patient and his family did not want any heroics or aggressive treatment of any possible cardiac issue despite being explained that it is possible that the patient has an infarct and he needs to be on ACS protocol which includes aspirin, beta- blockers, and nitroglycerin. At the moment the only treatment that they desire is IV diuretics and the unit of PRBC which he has been administered. We will continue to monitor him closely. - Problems/Diagnosis (1) Large pleural effusion Problem: Acute (2) Heart failure, diastolic, with acute decompensation Problem: Acute (3) Anemia Problem: Acute (4) Elevated troponin I level Problem: Acute (5) Physical deconditioning Problem: Acute
[2019-07-24] MEDS ORDERED: POVIDONE IODINE TP ONE (14:42)
[2019-07-24] MEDS: ROSUVASTATIN CALCIUM 20 MG TABLET PO SCH (20:56)
[2019-07-25] MEDS: BENZONATATE 100 MG CAPSULE PO PRN (00:04)
[2019-07-25] MEDS: glipiZIDE 10 MG TABLET PO SCH (07:18)
[2019-07-25 08:41] LABS: BUN/Creatinine Ratio 19.8 (9.0-21.6)
[2019-07-25 08:42] LABS: Albumin * 2.4 gm/dl (3.4-5.0); Anion Gap 8.5 mmol/L (6.8-13.8); Bilirubin, Total 0.5 mg/dL (0.0-1.1); Ca. Corrected For Albumin 8.9 mg/dL (8.4-10.2); Calcium * 7.9 mg/dL (7.9-10.9); Carbon Dioxide 30.1 mmol/L (24-32.6); Potassium 3.6 mmol/L (3.4-4.6); Total Protein 6.1 gm/dL (6.2-8.2)
[2019-07-25] MEDS ORDERED: ASCORBATE SOD PO SCH (09:00)
[2019-07-25] MEDS ORDERED: MULTIVIT-MIN/FA/LYCOPEN/LUTEIN 1 TAB TABLET PO SCH (09:00)
[2019-07-25] MEDS ORDERED: VITE AC PO SCH (09:00)
[2019-07-25] MEDS ORDERED: ARGININE PO SCH (09:00)
[2019-07-25] MEDS: GABAPENTIN 600 MG TABLET PO SCH ×2 (09:12→12:26)
[2019-07-25] MEDS: CILOSTAZOL 100 MG TABLET PO SCH (09:12)
[2019-07-25] MEDS: FAMOTIDINE 20 MG TABLET PO SCH (09:12)
[2019-07-25] MEDS: FERROUS SULFATE 325 MG TABLET PO SCH (09:12)
[2019-07-25] MEDS: PSYLLIUM SEED 1 PACKET PACKET PO SCH (09:13)
--- NOTE | 2019-07-25 09:29 | DS ---
(1) Large pleural effusion Problem: Acute (2) Acute on chronic anemia Problem: Acute (3) CHF (congestive heart failure) Problem: Suspected Qualifiers: Heart failure type: unspecified Heart failure chronicity: unspecified Qualified Code(s): I50.9 - Heart failure, unspecified (4) CKD (chronic kidney disease) stage 3, GFR 30-59 ml/min Problem: Chronic (5) Diabetes mellitus Problem: Chronic Qualifiers: Diabetes mellitus type: type 2 Diabetes mellitus manager long term care insulin use: without retirement use Chronic kidney disease stage: stage 3 (moderate) (6) Elevated troponin Problem: Acute (7) Acute hypernatremia Problem: Acute Description of Stay: 88-year-old male who past medical history of CKD stage III, iron deficiency anemia, Afib, type 2 diabetes, sick sinus syndrome, macular degeneration, mononeuropathy of both lower extremities presents with complaints of a nonproductive cough for the past 1 week. I discussed with the patient regarding CODE STATUS and he wants to be DNR/DNI. In the emergency department he is found to be anemic with a hemoglobin of 7.1, hematocrit 22.8. His renal function appears to be stable. The chest x-ray shows large left pleural effusion and pulmonary vascular congestion. Daughter states he has baseline chronic kidney disease that has been stable. Creatinine on admission was 2.1 with GFR of 32, elevated troponin of 0.12. He was admitted for fluid overload and anemia. He received 1 unit of blood on July 22, 2018 and IV diuresis with good response. Family and patient did not want any aggressive management such as a thoracentesis. He responded well throughout his admission and was able to be weaned off of oxygen. His mentation improved with diuresis. He lost approximately 20 kg of fluid. Repeat chest x-ray on July 24, 2019 did not show a significant decrease in the left-sided pleural effusion. He would like to return to rehab. He will need a follow-up with a lieutenant fire fighter and area loss prevention manager as an outpatient to assess what further options are available for the left-sided pleural effusion especially because he did not want a thoracentesis. Follow-up should be preferably within the next 1 week. I will send him to rehab on Lasix 20 mg daily. Recommend repeat BMP in 1 week. Procedures Performed: none Results and Findings: Pending Mircobiology Results 07/22/19 16:34 Blood Blood Culture - Preliminary NO GROWTH AFTER 48 HOURS 07/22/19 16:18 Blood Blood Culture - Preliminary NO GROWTH AFTER 48 HOURS Lab Pending Results 07/22/19 16:18: Lactic Acid, Venous 2.1 H 07/22/19 16:34: Sodium 141, Plasma Sodium 143 H, Potassium 4.4, Chloride 107 H, Carbon Dioxide 25.5, Anion Gap 12.9, BUN 42 H, Creatinine 2.10 H, Est GFR (Non- Af Amer) 32 L, BUN/Creatinine Ratio 20.0, Random Glucose 255 H, Calcium 7.8 L, Calcium Adj for Albumin 8.6, Total Bilirubin 0.4, AST 16, ALT 12 L, Alkaline Phosphatase 112, Troponin I 0.122 H*, C-Reactive Prot, Quant 7.5 H, B- Natriuretic Peptide 4331 H, Total Protein 6.2, Albumin 2.6 L 07/22/19 16:34: WBC 10.8 H, RBC 2.45 L, Hgb 7.1 L*, Hct 22.8 L*, MCV 93.1, MCH 29.0, MCHC 31.1 L, RDW 15.6 H, Plt Count 228, MPV 10.3, Neutrophils % (Manual) 80 H, Lymphocytes % (Manual) 9 L, Monocytes % (Manual) 11 H, Neutrophils # (Manual) 8.6 H, Lymphocytes # (Manual) 1.0 L, Monocytes # (Manual) 1.2 H, Platelet Estimate Normal, RBC Morphology Normal 07/22/19 16:34: D-Dimer 2.32 H 07/22/19 16:55: Blood Type O Positive, Antibody Screen Negative, Crossmatch See Detail 07/22/19 17:18: pCO2 33.8 L, pO2 38.2 L*, HCO3 20.2 L, Total CO2 21.2, Base Excess -4.2 L, ABG pH 7.39, ABG O2 Sat (Measured) 72.8 L 07/22/19 19:36: Lactic Acid, Venous 1.3 07/23/19 05:20: WBC 11.4 H, RBC 3.19 L, Hgb 9.3 L, Hct 28.9 L, MCV 90.6, MCH 29.2, MCHC 32.2, RDW 15.4 H, Plt Count 248, MPV 10.6, Immature Gran % (Auto) 0.30, Immature Gran # (Auto) 0.03, Neutrophils % 68.6, Lymphocytes % 13.5 L, Monocytes % 13.3 H, Eosinophils % 3.9 H, Basophils % 0.4, Nucleated RBC % 0.0, Neutrophils # 7.8 H, Lymphocytes # 1.53, Monocytes # 1.5 H, Eosinophils # 0.4, Absolute Basophils 0.1 07/23/19 05:20: Sodium 145 H, Plasma Sodium 145 H, Potassium 3.7, Chloride 109 H, Carbon Dioxide 26.0, Anion Gap 13.7, BUN 43 H, Creatinine 1.99 H, Est GFR (Non-Af Amer) 34 L, BUN/Creatinine Ratio 21.6, Random Glucose 95 D, Calcium 8.3, Calcium Adj for Albumin 9.0, Total Bilirubin 0.6, AST 20, ALT 9 L, Alkaline Phosphatase 127, Total Protein 6.6, Albumin 2.7 L 07/24/19 08:37: WBC 10.5, RBC 3.48 L, Hgb 10.1 L, Hct 32.0 L, MCV 92.0, MCH 29.0, MCHC 31.6 L, RDW 15.2 H, Plt Count 267, MPV 9.6, Immature Gran % (Auto) 0.30, Immature Gran # (Auto) 0.03, Neutrophils % 73.4, Lymphocytes % 11.4 L, Monocytes % 10.1 H, Eosinophils % 4.3 H, Basophils % 0.5, Nucleated RBC % 0.0, Neutrophils # 7.7 H, Lymphocytes # 1.20 L, Monocytes # 1.1 H, Eosinophils # 0.5, Absolute Basophils 0.1 07/24/19 08:37: Sodium 142, Plasma Sodium 144 H, Potassium 3.9, Chloride 104, Carbon Dioxide 29.6, Anion Gap 12.3, BUN 41 H, Creatinine 2.13 H, Est GFR (Non- Af Amer) 31 L, BUN/Creatinine Ratio 19.2, Random Glucose 194 H D, Calcium 8.1, Calcium Adj for Albumin 8.7, Total Bilirubin 0.8, AST 21, ALT 13 L, Alkaline Phosphatase 132, B-Natriuretic Peptide 3601 H, Total Protein 7.2, Albumin 2.8 L 07/25/19 08:28: Sodium 142, Plasma Sodium 143 H, Potassium 3.6, Chloride 107 H, Carbon Dioxide 30.1, Anion Gap 8.5, BUN 42 H, Creatinine 2.12 H, Est GFR (Non-Af Amer) 32 L, BUN/Creatinine Ratio 19.8, Random Glucose 162 H, Calcium 7.9, Calcium Adj for Albumin 8.9, Total Bilirubin 0.5, AST 19, ALT 9 L, Alkaline Phosphatase 112, Total Protein 6.1 L, Albumin 2.4 L Discharge Location: [facility] Disposition: [facility] Condition: Fair Level of Care: SNF Discharge Activity: Activity as tolerated Discharge Diet: Consistent carbs Usp Therapy: Physical Therapy, Occupation Therapy Referrals: Crystal Rosario APRN [Primary Care Provider] - Additional Patient Instructions (free text): Dr Joe [facility]. Send results of labs to him. Weight patient DAILY. Keep record. Has Cardiology appointment with Dr Mcdonough at [facility] on August 09. Pulmonology appointment within a week. Dr. Dilip Cherry 's office could only get him in on 08-14-19 at 9:00 am . in [facility] , will call if they have a cancellation to get him in sooner. Monitor kidney function with BMP in one week and give results to Dr. Joe Prescriptions (Any new or edited meds): Furosemide 20 mg PO DAILY #30 tablet Complete Home Medications List: Complete Home Medication List: Acetaminophen [Tylenol] 650 mg PO Q6H PRN 07/22/19 Albuterol Sulfate/Ipratropium [Duoneb 2.5-0.5MG/3ML Soln] 3 ml INHALATION .Q4HR PRN 07/22/19 Arginine/Ascorbate Sod/Marielena AC [Arginaid Powder] 1 ea PO DAILY 07/22/19 Atorvastatin Calcium 40 mg PO DAILY 07/22/19 Cilostazol [Pletal] 100 mg PO DAILY 07/22/19 Enalapril Maleate [Vasotec] 20 mg PO BID 07/22/19 Ferrous Sulfate [Iron] 325 mg PO DAILY 07/22/19 Gabapentin [Neurontin] 600 mg PO TID 07/22/19 Loratadine 10 mg PO PRN PRN 07/22/19 Multivit-Min/FA/Lycopen/Lutein [Sentry Senior Multivitamin Tab] 1 ea PO DAILY 07/22/19 Nut.tx.gluc Intol,Lf,Soy/Fiber [Glucerna] 240 ml PO BID 07/22/19 [place]-3/Dha/Epa/Fish Oil [Fish Oil 1,000 mg Softgel] 1 ea PO DAILY 07/22/19 Propylene Glycol/Peg 400/Pf [Systane 0.3-0.4% Eye Drop] 1 ea OPHTHALMIC (EYE) QID 07/22/19 Pseudoephedrine HCl [Sudogest] 30 mg PO .Q4HR PRN 07/22/19 Psyllium Husk (with Sugar) [Metamucil] 1 ea PO DAILY 07/22/19 Ranitidine HCl [Zantac] 150 mg PO BID 07/22/19 Vitamin A 400 unit PO DAILY 07/22/19 amLODIPine BESYLATE [Norvasc] 10 mg PO DAILY 07/22/19 glipiZIDE [Glipizide] 10 mg PO BID 07/22/19 guaiFENesin [Mucinex] 600 mg PO .Q12HR PRN 07/22/19 guaiFENesin/DEXTROMETHORPHAN [Tussin Dm Syrup] 10 ml PO .Q4HR PRN 07/22/19 Furosemide 20 mg PO DAILY #30 tablet 07/25/19 Amb Orders for Discharge: Basic Metabolic Panel Time Frame: 1 Week, Facility: [facility], Location: Laboratory
[2019-07-25] MEDS: amLODIPine BESYLATE 10 MG TABLET PO SCH (09:56)
[2019-07-25] MEDS: ENALAPRIL MALEATE 20 MG TABLET PO SCH (09:56)
[2019-07-25] MEDS: FUROSEMIDE 10 MG/ML VIAL IV SCH (10:23)
[2019-07-25 13:20] VITALS: BP 114/45
== END 2019-07-25 13:26 | DRG 291 ==
LOC: ER 15:59 → MS 15:59
PROVIDERS: ADMIT Internal Medicine; ATTEND Internal Medicine
DX: E11.22 Type 2 diabetes mellitus with diabetic chronic kidney disease; D50.9 Iron deficiency anemia, unspecified; R79.89 Other specified abnormal findings of blood chemistry; N18.3 Chronic kidney disease, stage 3 (moderate); D63.1 Anemia in chronic kidney disease; I13.0 Hypertensive heart and chronic kidney disease with heart failure and stage 1 through stage 4 chronic kidney disease, or unspecified chronic kidney disease; I50.33 Acute on chronic diastolic (congestive) heart failure; E87.0 Hyperosmolality and hypernatremia; I49.5 Sick sinus syndrome; G57.93 Unspecified mononeuropathy of bilateral lower limbs; Z87.891 Personal history of nicotine dependence
CPT/HCPCS: 36415; 36600; 71020; 71046; 80053; 82803; 83519; 83605; 83880; 84484; 85007; 85025; 85379; 86140; 86850; 87040; 87081; 93005; 94760; 96374; 96376; 97110; 97116; 97161; 99285; G0378; P9016